=== PATIENT | female | born 2000 | race Caucasian/White ===

== ENCOUNTER 2021-08-31 14:03 | Emergency (ER) | payer SELFPAY ==
[2021-08-31 14:33] VITALS: BP 0/0; PULSE 0; RESP 0; TEMP -17.7; TEMP 0
== END 2021-08-31 14:34 | disposition left against medical advice (07) ==
LOC: UTC 14:06
PROVIDERS: Emergency Provider Nurse Practitioner; PCP Nurse Practitioner
DX: Z53.21 Procedure and treatment not carried out due to patient leaving prior to being seen by health care provider (principal)